=== PATIENT | female | born 1960 | race Caucasian/White ===

== ENCOUNTER 2018-07-18 03:24 | Inpatient (IN) | payer MEDICAID ==
[~2018-07-18] VITALS: Ht 157.5 cm; Wt 89.5 kg
[~2018-07-18 03:24] MED LIST: FLO0.4C PO; NAPR-56 PO; ONDA4TAB6 PO
--- NOTE | 2018-07-18 04:00 | NUR ---
Patient arrived via gurney to floor as direct admit from [facility]. Pt walked to bed with SBA. Patient c/o pain 09/26. Notified MD of pt arrival. Ordered 1mg dilaudid once. Will come to see pt and place orders.
[2018-07-18] MEDS ORDERED: HYDROmorphone 1 mg/ml syringe IV ONE (04:20)
[2018-07-18 04:35] VITALS: BP 135/47
--- NOTE | 2018-07-18 04:39 | NUR ---
in to see pt.
[2018-07-18] MEDS ORDERED: mag hydrox/Alum hydrox/simeth 30ml oral suspension PO PRN (04:50)
[2018-07-18] MEDS ORDERED: magnesium hydroxide 30ml (MOM) UD suspension PO PRN (04:50)
--- NOTE | 2018-07-18 05:08 | NUR ---
Direct admit, no ID band on patient. Patient in severe pain. Pain medication order received. Completed two finger cobbler check with TRICIA Avila to sign for dose of pain meds.
[2018-07-18] MEDS: normal saline 1000ml 1,000 ML IV SCH ×2 (05:35→15:42)
--- NOTE | 2018-07-18 06:31 | NUR ---
Problems reprioritized. Patient report given, questions answered & plan of care reviewed with TRICIA Connolly.
[2018-07-18 07:00] VITALS: BP 122/64
--- NOTE | 2018-07-18 09:00 | NUR ---
PAGER ID: [phone] MESSAGE: [id number] Marily Nino: I called Dr Emerita Gómez's office about the kidney stone and the information receptionist said she is not an established patient over there, and that you would have to call Dr Gómez for a consult. TRICIA Connolly Ext [phone]
[2018-07-18] MEDS: HYDROmorphone inj. 0.5 MG/0.5 ML DISP.SYRIN IV PRN ×3 (10:03→20:35)
[2018-07-18] MEDS: tamsulosin 0.4mg capsule PO SCH ×2 (10:26→20:24)
[2018-07-18] MEDS: ondansetron/PF 4mg/2ml inj IV PRN (10:52)
[2018-07-18] MEDS: acetaminophen 325mg tablet PO PRN ×2 (10:53→18:05)
[2018-07-18 11:00] VITALS: BP 142/50
[2018-07-18 11:24] LABS: HEMATOCRIT 32.3 % (35.0-45.0); HEMOGLOBIN 11.1 g/dl (12.0-16.0); MEAN CORPUSCULAR HEMOGLOBIN 31.1 PG (27.0-31.0); MEAN CORPUSCULAR HGB CONC 34.5 g/dL (33.0-36.5); MEAN CORPUSCULAR VOLUME 90.3 FL (78-98); MEAN PLATELET VOLUME 8.2 FL (7.4-10.4); PLATELET COUNT 269 X10'3 (140-440); RED BLOOD COUNT 3.58 X10'6 (4.20-5.60); RED CELL DISTRIBUTION WIDTH 13.2 % (11.5-14.5); WHITE BLOOD COUNT 8.4 X10'3 (4.5-11.0)
[2018-07-18 11:33] LABS: ALBUMIN 3.6 G/DL (3.4-5.0); ANION GAP 7 (8-16); BLOOD UREA NITROGEN 23 MG/DL (7-18); BUN/CREATININE RATIO 15.5 (6.6-38.0); CALCIUM 9.2 MG/DL (8.5-10.1); CHLORIDE 106 MMOL/L (99-107); CREATININE 1.48 MG/DL (0.40-0.90); GLUCOSE 97 MG/DL (70-104); POTASSIUM 4.6 MMOL/L (3.5-5.1); SODIUM 139 MMOL/L (135-145); eGFR 36 ML/MIN
[2018-07-18 15:00] VITALS: BP 149/79
--- NOTE | 2018-07-18 15:30 | NUR ---
PAGER ID: [phone] MESSAGE: [id number] Marily Oneill: Do you still want patient NPO? TRICIA Connolly Ext [phone]
[2018-07-18 18:00] VITALS: BP 152/72
--- NOTE | 2018-07-18 18:34 | NUR ---
Problems reprioritized. Patient report given, questions answered & plan of care reviewed with TRICIA Tran.
--- NOTE | 2018-07-18 18:45 | NUR ---
Patient in room PCU 3016. I have received report from TRICIA Connolly and had the opportunity to ask questions and assume patient care.
[2018-07-18 22:00] VITALS: BP 119/56
[2018-07-19] MEDS: normal saline 1000ml 1,000 ML IV SCH ×3 (00:53→20:27)
[2018-07-19 02:00] VITALS: BP 107/55
[2018-07-19] MEDS: HYDROmorphone inj. 0.5 MG/0.5 ML DISP.SYRIN IV PRN ×3 (04:17→16:03)
[2018-07-19 06:00] VITALS: BP 147/80
[2018-07-19 06:10] LABS: BASOPHILS # (AUTO) 0.1 X10'3 (0-0.2); BASOPHILS % (AUTO) 1.3 % (0-1); EOSINOPHILS # (AUTO) 0.3 X10'3 (0-0.9); EOSINOPHILS % (AUTO) 4.8 % (0-6); HEMATOCRIT 32.1 % (35.0-45.0); HEMOGLOBIN 10.9 g/dl (12.0-16.0); LYMPHOCYTES # (AUTO) 2.1 X10'3 (1.1-4.8); LYMPHOCYTES % (AUTO) 37.1 % (21-51); MEAN CORPUSCULAR HEMOGLOBIN 31.3 PG (27.0-31.0); MEAN CORPUSCULAR HGB CONC 33.8 g/dL (33.0-36.5); MEAN CORPUSCULAR VOLUME 92.7 FL (78-98); MEAN PLATELET VOLUME 8.4 FL (7.4-10.4); MONOCYTES # (AUTO) 0.6 X10'3 (0-0.9); MONOCYTES % (AUTO) 9.9 % (2-12); NEUTROPHILS # (AUTO) 2.7 X10'3 (1.8-7.7); NEUTROPHILS % (AUTO) 46.9 % (42-75); PLATELET COUNT 268 X10'3 (140-440); RED BLOOD COUNT 3.47 X10'6 (4.20-5.60); RED CELL DISTRIBUTION WIDTH 13.4 % (11.5-14.5); WHITE BLOOD COUNT 5.8 X10'3 (4.5-11.0)
--- NOTE | 2018-07-19 06:13 | NUR ---
Problems reprioritized. Patient report given, questions answered & plan of care reviewed with TRICIA Connolly.
[2018-07-19 06:19] LABS: PARTIAL THROMBOPLASTIN TIME 32 SECONDS (22-32)
[2018-07-19 06:22] LABS: ALBUMIN 3.1 G/DL (3.4-5.0); ANION GAP 8 (8-16); BLOOD UREA NITROGEN 19 MG/DL (7-18); BUN/CREATININE RATIO 18.1 (6.6-38.0); CALCIUM 8.9 MG/DL (8.5-10.1); CHLORIDE 108 MMOL/L (99-107); CREATININE 1.05 MG/DL (0.40-0.90); GLUCOSE 106 MG/DL (70-104); POTASSIUM 4.7 MMOL/L (3.5-5.1); SODIUM 141 MMOL/L (135-145); TOTAL CARBON DIOXIDE 25.4 MMOL/L (24-32); eGFR 54 ML/MIN
--- NOTE | 2018-07-19 06:22 | NUR ---
Patient in room PCU 3016. I have received report from TRICIA Tran and had the opportunity to ask questions and assume patient care.
[2018-07-19 11:00] VITALS: BP 138/81
[2018-07-19] MEDS: acetaminophen 325mg tablet PO PRN ×2 (14:07→22:10)
--- NOTE | 2018-07-19 16:26 | NUR ---
Patient in room [facility] 359. I have received report from Mohsen CLARKE and had the opportunity to ask questions and assume patient care.
--- NOTE | 2018-07-19 18:47 | NUR ---
Problems reprioritized. Patient report given, questions answered & plan of care reviewed with Doreen CLARKE.
[2018-07-19] MEDS: ondansetron/PF 4mg/2ml inj IV PRN (18:49)
[2018-07-19 20:00] VITALS: BP 133/67
[2018-07-19] MEDS: ketorolac tromethamine 15mg/ml inj. IV PRN (20:25)
[2018-07-19] MEDS: tamsulosin 0.4mg capsule PO SCH (20:26)
[2018-07-19] MEDS: HYDROcodone/acetaminophen 10/325mg tab PO PRN (21:07)
[2018-07-20] VITALS: BP 123/72
[2018-07-20] MEDS: HYDROcodone/acetaminophen 10/325mg tab PO PRN ×2 (02:40→10:33)
[2018-07-20 06:17] LABS: BASOPHILS # (AUTO) 0.1 X10'3 (0-0.2); BASOPHILS % (AUTO) 1.8 % (0-1); EOSINOPHILS # (AUTO) 0.3 X10'3 (0-0.9); EOSINOPHILS % (AUTO) 5.1 % (0-6); HEMATOCRIT 30.2 % (35.0-45.0); HEMOGLOBIN 10.3 g/dl (12.0-16.0); LYMPHOCYTES # (AUTO) 2.4 X10'3 (1.1-4.8); LYMPHOCYTES % (AUTO) 42.5 % (21-51); MEAN CORPUSCULAR HEMOGLOBIN 31.4 PG (27.0-31.0); MEAN CORPUSCULAR HGB CONC 34.2 g/dL (33.0-36.5); MEAN CORPUSCULAR VOLUME 91.8 FL (78-98); MEAN PLATELET VOLUME 8.2 FL (7.4-10.4); MONOCYTES # (AUTO) 0.5 X10'3 (0-0.9); MONOCYTES % (AUTO) 9.6 % (2-12); NEUTROPHILS # (AUTO) 2.3 X10'3 (1.8-7.7); PLATELET COUNT 285 X10'3 (140-440); RED BLOOD COUNT 3.29 X10'6 (4.20-5.60); RED CELL DISTRIBUTION WIDTH 12.9 % (11.5-14.5); WHITE BLOOD COUNT 5.6 X10'3 (4.5-11.0)
[2018-07-20 06:30] LABS: ALBUMIN 3.2 G/DL (3.4-5.0); ANION GAP 7 (8-16); BLOOD UREA NITROGEN 16 MG/DL (7-18); BUN/CREATININE RATIO 17.8 (6.6-38.0); CALCIUM 9.6 MG/DL (8.5-10.1); CHLORIDE 108 MMOL/L (99-107); GLUCOSE 100 MG/DL (70-104); POTASSIUM 4.4 MMOL/L (3.5-5.1); SODIUM 142 MMOL/L (135-145); TOTAL CARBON DIOXIDE 27.2 MMOL/L (24-32); eGFR 65 ML/MIN
--- NOTE | 2018-07-20 06:48 | NUR ---
Problems reprioritized. Patient report given, questions answered & plan of care reviewed with Maegan CLARKE. Resting in bed eyes closed respirations even.
[2018-07-20 07:00] VITALS: BP 145/74
[2018-07-20] MEDS: normal saline 1000ml 1,000 ML IV SCH (08:12)
[2018-07-20] MEDS: HYDROmorphone inj. 0.5 MG/0.5 ML DISP.SYRIN IV PRN (08:17)
[2018-07-20] MEDS: ketorolac tromethamine 15mg/ml inj. IV PRN (11:13)
[2018-07-20] MEDS: ondansetron/PF 4mg/2ml inj IV PRN (11:13)
[2018-07-20] MEDS ORDERED: FLO0.4C PO (13:30)
--- NOTE | 2018-07-20 15:26 | NUR ---
patient seen by Dr Barkley is for DC. All instructions given to patient. patient appears stable DC home with friend 1430hrs via private car
== END 2018-07-20 14:31 | disposition home or self-care (01) | DRG 465 ==
LOC: PCU 3S 03:24 → SUR 3N 07-19 15:39
PROVIDERS: ADMIT Hospitalist; ATTEND Family Medicine
DX: N13.2 Hydronephrosis with renal and ureteral calculous obstruction (principal); N17.9 Acute kidney failure, unspecified; D64.9 Anemia, unspecified; G89.29 Other chronic pain; K21.9 Gastro-esophageal reflux disease without esophagitis; M54.9 Dorsalgia, unspecified; M19.90 Unspecified osteoarthritis, unspecified site; N18.9 Chronic kidney disease, unspecified; Z96.619 Presence of unspecified artificial shoulder joint; Z90.49 Acquired absence of other specified parts of digestive tract; Z79.891 Long term (current) use of opiate analgesic; Z79.899 Other long term (current) drug therapy; Z87.442 Personal history of urinary calculi; Z87.891 Personal history of nicotine dependence
CPT/HCPCS: 36415; 80048; 85025; 85027; 85610; 85730; 87070; 93005; 99285; G0378; J1170; J1885; J2405; J7030

== ENCOUNTER 2018-12-21 11:19 | Emergency (ER) | payer MEDICAID ==
[~2018-12-21] VITALS: Ht 162.6 cm; Wt 82.1 kg
[~2018-12-21 11:19] MED LIST changes: -NAPR-56 PO
--- NOTE | 2018-12-21 12:10 | NUR ---
PATIENT HERE WITH MULTIPLE COMPLAINTS: PRODUCTIVE COUGH NOW HAS STOPPED: ON ABX: CXR SHOWED FLUID FROM RED BLUFF MD
--- NOTE | 2018-12-21 12:10 | NUR ---
LUNGS CL AND DIM BASES RR EVEN AND UNLABORED DENIES SOB
--- NOTE | 2018-12-21 12:25 | NUR ---
MEDICAL RECORDS WERE REQUESTED FROM [facility]
--- NOTE | 2018-12-21 13:30 | NUR ---
PATIENT WANTING TO LEAVE: "I NEED MY HOME PAIN MEDS" DISCUSSED WITH DR MUNOZ
[2018-12-21 14:11] VITALS: BP 127/67
== END 2018-12-21 13:45 | disposition home or self-care (01) ==
LOC: ER 11:20
DX: J90 Pleural effusion, not elsewhere classified (principal); R07.81 Pleurodynia; Z79.899 Other long term (current) drug therapy
CPT/HCPCS: 71046; 99283